=== PATIENT | male | born 1995 | race Caucasian/White ===

== ENCOUNTER 2020-12-28 07:09 | Day surgery (SDC) | payer OTHER ==
[2020-12-27 10:07] VITALS: BMI 21.9
[2020-12-28] MEDS ORDERED: Acetaminophen 500 MG TAB ONE (08:00)
[2020-12-28] MEDS ORDERED: Fentanyl 100 MCG/2 ML VIAL ONE (08:11)
[2020-12-28] MEDS ORDERED: Lidocaine 1% w/Epinephrine 1:100K 20 ML VIAL ONE (08:56)
[2020-12-28] MEDS ORDERED: Meperidine HCl/PF 25 MG/ML VIAL ONE (11:29)
== END 2020-12-28 13:20 | disposition home or self-care (01) ==
LOC: SDC 07:09
PROVIDERS: ATTEND Specialist
PROC: 0JB Subcutaneous Tissue and Fascia, Excision (ICD-10-PCS; principal; 2020-12-28)
DX: Q18.0 Sinus, fistula and cyst of branchial cleft (principal); Z87.891 Personal history of nicotine dependence
CPT/HCPCS: 88305; J2175; J3010